=== PATIENT | female | born 1985 | race Two or more races ===

== ENCOUNTER 2016-10-01 18:51 | Emergency (ER) | payer MEDICAID ==
[~2016-10-01] VITALS: Ht 170.2 cm; Wt 82.6 kg
[2016-10-01 19:09] VITALS: BP 118/62
--- NOTE | 2016-10-01 19:34 | Emergency Room Report ---
History of Present Illness General Chief Complaint: General Complaint Source: Patient Present Illness HPI 31-year-old female presents emergency department complaining of low back pain x1 week 05/29 in severity localized primarily in the paraspinal with occasional radiation into the legs describes pain as "tightness in the low back". She fell off of a hover board and landed on her low back. denies hitting her head or loss of consciousness. Patient denies saddle anesthesia. Patient also reports productive cough x2 days with intermittent fevers and exposure to close contact (grandmother) who is now hospitalized for pneumonia. Pt. states symptoms persist despite conservative treatment at home with OTC medications Denies recent travel. Denies numbness tingling or loss of sensation or gross motor movements of the extremities, incontinence of bowel or bladder. Denies CP , Palpitations, LOC, AMS, dizziness, Changes in Vision, Sensation, paresthesias , or a sudden severe headache. Allergies: Coded Allergies: No Known Allergies (Unverified , 10/01/16) Patient History Past Medical History: see triage record Past Surgical History: none Pertinent Family History: none Last Menstrual Period: 09/12/16 Now: No Immunizations: UTD Reviewed Nursing Documentation: PMH: Agreed, PSxH: Agreed Nursing Documentation-PMH Past Medical History: No Stated History Review of Systems All Other Systems: negative except mentioned in HPI Physical Exam Vital Signs Date Time Temp Pulse Resp B/P Pulse Ox O2 Delivery O2 Flow Rate FiO2 10/01/16 19:02 101.7 95 16 113/73 100 Room Air Sp02 EP Interpretation: reviewed, normal General Appearance: no apparent distress, alert, GCS 15, non-toxic Head: normocephalic, atraumatic Eyes: bilateral eye PERRL, bilateral eye normal inspection ENT: hearing grossly normal, normal pharynx, no angioedema, normal voice Neck: full range of motion, supple/symm/no masses Respiratory: chest non-tender, lungs clear, normal breath sounds, no rhonchi, no respiratory distress, no retraction, no accessory muscle use, no wheezing, speaking full sentences, other - non-productive wet cough observed multiple times durring PE and ED visit. Cardiovascular #1: regular rate, rhythm, no edema Gastrointestinal: normal bowel sounds, non tender, soft, no guarding, no rebound Rectal: deferred Genitourinary: normal inspection, no CVA tenderness Musculoskeletal: back normal, gait/station normal, normal range of motion, no calf tenderness, tender - TTP across the lumbar area of the back, no midline spinous process pain, no tailbone TTP, significant paraspinal TTP, no bruising noted no erythema, no obvious deformity pt. has FROM with mild pain on full flexion. Pt is NVI no saddle anesthesia. Neurologic: alert, oriented x3, responsive, motor strength/tone normal, sensory intact, speech normal Psychiatric: judgement/insight normal, memory normal, mood/affect normal, no suicidal/homicidal ideation Skin: normal color, no rash, warm/dry, well hydrated Lymphatic: no adenopathy Medical Decision Making PA Attestation Dr. teixeira is my supervising Physician whom patient management has been discussed with. Diagnostic Impression: Primary Impression: Contusion Qualified Codes: S30.0XXA - Contusion of lower back and pelvis, initial encounter Additional Impressions: Muscle spasm Atypical pneumonia ER Course Pt. presents to the ED c/o productive cough, fevers and exposure to close contact who is now hospitalized for pneumonia. pt. states symptoms persist despite conservative treatment at home with OTC medications. pt. also has LBP s/ p mechanical fall off hover board. negative LOC. Ddx considered but are not limited to URI, pneumonia, PE, strep pharyngitis, meningitis, contusion, fracture, muscle strain/spasm. Vital signs: Pt. is afebrile, the remaining VS are WNL H&PE are most consistent with atypical pneumonia, and contusion. - Pt is oxygenating well and appears stable for outpatient treatment. ORDERS: none required at this time, the diagnosis is clinical ED INTERVENTIONS: None required at this time. DISCHARGE: At this time pt. is stable for d/c to home. Will provide printed patient care instructions, and any necessary prescriptions. Care plan and follow up instructions have been discussed with the patient prior to discharge. Last Vital Signs Date Time Temp Pulse Resp B/P Pulse Ox O2 Delivery O2 Flow Rate FiO2 10/01/16 19:09 101.0 86 18 118/62 100 Room Air Disposition: HOME, SELF-CARE Condition: Stable Scripts Ibuprofen* (MOTRIN*) 600 Mg Tablet 600 MG ORAL THREE TIMES A DAY, #30 TAB 0 Refills Prov: Coleen Talavera 10/01/16 D-Methorphan Hb/Prometh Hcl* (PROMETHAZINE-DM SYRUP*) 118 Ml Syrup 5 ML ORAL Q6H Y for For Cough, #118 ML 0 Refills Prov: Coleen Talavera 10/01/16 Cyclobenzaprine Hcl* (FLEXERIL*) 10 Mg Tablet 10 MG ORAL THREE TIMES A DAY, #20 TAB Prov: Coleen Talavera 10/01/16 Azithromycin* (ZITHROMAX*) 250 Mg Tablet 250 MG ORAL DAILY, #6 TAB 0 Refills Take two tables once daily for 1 day, then one tablet once daily for 4 days. Prov: Coleen Talavera 10/01/16 Patient Instructions: Contusion, Muscle Cramps and Spasms, [id number], Upper Respiratory Infection, Adult, [id number] Additional Instructions: Take medications as directed. Follow up with PCP in 3-5 days Return sooner to ED if new symptoms occur, or current symptoms become worse. Do not drink alcohol, drive, or operate heavy machinery while taking Muscle relaxer as this may cause drowsiness. Coleen Talavera Oct 01, 2016 19:34
[2016-10-01] MEDS ORDERED: Ketorolac 60mg Inj IM ONE (19:45)
[2016-10-01] MEDS ORDERED: CYCLOBENZAPRINE10 MG ORAL (19:46)
[2016-10-01] MEDS ORDERED: ZITHROMAX250 MG ORAL (19:46)
[2016-10-01] MEDS ORDERED: PROMETHAZINE-D118 ML ORAL (19:46)
[2016-10-01] MEDS ORDERED: IBUPROFEN600 MG ORAL (19:46)
[2016-10-01 19:49] VITALS: BP 109/71
== END 2016-10-01 19:49 | disposition home or self-care (01) ==
LOC: EMR 19:15
DX: S30.0XXA Contusion of lower back and pelvis, initial encounter (principal); V98.8XXA Other specified transport accidents, initial encounter; J18.9 Pneumonia, unspecified organism; M62.838 Other muscle spasm
CPT/HCPCS: 96372; 99283

== ENCOUNTER 2018-02-19 21:32 | Emergency (ER) | payer MEDICAID ==
[~2018-02-19] VITALS: Ht 170.2 cm; Wt 83.5 kg
[~2018-02-19 21:32] MED LIST: CYCLOBENZAPRINE10 MG ORAL; IBUPROFEN600 MG ORAL; PROMETHAZINE-D118 ML ORAL; ZITHROMAX250 MG ORAL
[2018-02-19 21:40] VITALS: BP 108/58
--- NOTE | 2018-02-19 21:56 | Emergency Room Report ---
History of Present Illness General Chief Complaint: Animal Bite Source: Patient Present Illness HPI Patient presents with complaints of dog bite to the left upper thigh This happened earlier prior to arrival Patient reports that it's neighbors dog Apparently there was some scuffle The patient tried to get into the middle and was accidentally bitten from the reports of the patient Denies any abdominal pain denies any vomiting Pain to the area is 3 out of 10 Allergies: Coded Allergies: No Known Allergies (Unverified , 10/01/16) Patient History Past Medical History: see triage record Pertinent Family History: none Last Menstrual Period: 02/18/18 Now: No Reviewed Nursing Documentation: PMH: Agreed; PSxH: Agreed Nursing Documentation-PMH Past Medical History: No Stated History Review of Systems All Other Systems: negative except mentioned in HPI Physical Exam Vital Signs Date Time Temp Pulse Resp B/P (MAP) Pulse Ox O2 Delivery O2 Flow Rate FiO2 02/19/18 21:36 98.5 74 16 108/58 97 Room Air 98.4 Sp02 EP Interpretation: reviewed, normal General Appearance: well appearing, no apparent distress Head: normocephalic, atraumatic Eyes: bilateral eye PERRL, bilateral eye EOMI ENT: hearing grossly normal, normal pharynx, TMs + canals normal, uvula midline Neck: full range of motion, supple, no meningismus, no bony tend Respiratory: lungs clear, normal breath sounds, no rhonchi, no respiratory distress, no retraction, no accessory muscle use Cardiovascular #1: normal peripheral pulses, regular rate, rhythm, no edema, no gallop, no JVD, no murmur Gastrointestinal: normal bowel sounds, non tender, soft, no mass, no organomegaly, non-distended, no guarding, no hernia, no pulsatile mass, no rebound Genitourinary: no CVA tenderness Musculoskeletal: normal inspection Neurologic: oriented x3, responsive, rn orthopaedic III-XII nml as tested, motor strength/ tone normal, sensory intact Psychiatric: mood/affect normal Skin: other - There is an area on the left upper mid leg region on the lateral aspect appears that there was a break in the skin, there is another small abrasion next to that, and there is a associated ecchymosis approximately 4 x 2 cm no expanding hematoma Lymphatic: normal inspection, no adenopathy Medical Decision Making Diagnostic Impression: Primary Impression: Bite by animal ER Course Patient was given a tetanus shot as her last tetanus was just over 5 years ago Also provided with initial antibiotic here There appears to be break in the skin with associated hematoma Patient is appropriate for close outpatient follow-up There is lack of any concern for rabies Given the description of the dog Last Vital Signs Date Time Temp Pulse Resp B/P (MAP) Pulse Ox O2 Delivery O2 Flow Rate FiO2 02/19/18 21:36 98.5 74 16 108/58 97 Room Air 98.4 Status: improved Disposition: HOME, SELF-CARE Condition: Improved Scripts Ibuprofen* (MOTRIN*) 600 Mg Tablet 600 MG ORAL Q8H PRN for For Pain, #20 TAB 0 Refills Prov: Eloy Wise DO 02/19/18 Amoxicillin/Potassium Clav 875-125* (AUGMENTIN 875-125 TABLET*) 1 Each Tablet 1 TAB ORAL TWICE A DAY, #14 TAB Prov: Eloy Wise DO 02/19/18 Additional Instructions: Patient is provided with the discharge instructions notified to follow up with primary doctor in the next 2-3 days otherwise return to the er with any worsening symptoms. Please note that this report is being documented using [employer] technology. This can lead to erroneous entry secondary to incorrect interpretation by the dictating instrument. Eloy Wise DO Feb 19, 2018 21:55
[2018-02-19] MEDS ORDERED: AUGMENTIN 875-1 EAC1 ORAL (21:57)
[2018-02-19] MEDS ORDERED: IBUPROFEN600 MG ORAL (21:57)
[2018-02-19] MEDS ORDERED: Tetanus/Diptheria/Pertussis Vaccine 0.5ml Syr IM ONE (22:00)
[2018-02-19] MEDS ORDERED: Augmentin 875mg Tab ORAL ONE (22:00)
[2018-02-19 22:09] VITALS: BP 0/0
== END 2018-02-19 22:09 | disposition home or self-care (01) ==
LOC: EMR 21:56
DX: S71.152A Open bite, left thigh, initial encounter (principal); Z23 Encounter for immunization; W54.0XXA Bitten by dog, initial encounter; Y92.9 Unspecified place or not applicable
CPT/HCPCS: 90471; 90715; 96372; 99284